=== PATIENT | male | born 1975 | race African-American/Black ===

== ENCOUNTER 2016-12-29 16:05 | Emergency (ER) | payer OTHER ==
[~2016-12-29] VITALS: Ht 177.8 cm; Wt 102.6 kg
[2016-12-29 16:11] VITALS: BP 146/96
[2016-12-29] MEDS ORDERED: IBUPROFEN 200 MG TABLET ONE (17:03)
[2016-12-29] MEDS ORDERED: IBUPROFEN 200 MG TABLET PO ONE (18:00)
== END 2016-12-29 17:43 | disposition home or self-care (01) ==
LOC: ED 17:37
DX: M75.52 Bursitis of left shoulder (principal); E11.9 Type 2 diabetes mellitus without complications; F17.200 Nicotine dependence, unspecified, uncomplicated
CPT/HCPCS: 99284

== ENCOUNTER → 2020-04-13 | Outpatient (CLI) | payer OTHER | END | disposition home or self-care (01) | LOC: CLISVCS 12:52 | PROVIDERS: ATTEND Anesthesiology | DX: Z20.828 Contact with and (suspected) exposure to other viral communicable diseases (principal) | CPT/HCPCS: 87635 ==

== ENCOUNTER → 2020-04-18 | Day surgery (SDC) | payer OTHER ==
[~2020-04-18] MED LIST: AMLO-211 PO; ASPI-515 PO; BUPIVACAINE/PF 0.5% ONE; EMPA1TAB17 PO; EPINEPHRINE 1 MG/ML, 1ML ONE; LISI-170 PO; SIMV20TA19 PO
== END | disposition home or self-care (01) ==
LOC: OUT 06:06
PROVIDERS: ATTEND Surgery
DX: Z02.9 Encounter for administrative examinations, unspecified (principal)
CPT/HCPCS: J0171

== ENCOUNTER 2020-04-22 09:34 | Day surgery (SDC) | payer OTHER ==
[~2020-04-22] VITALS: Ht 177.8 cm; Wt 75.0 kg
[2020-04-22] MEDS ORDERED: EPINEPHRINE 1 MG/ML, 1ML ONE (09:50)
[2020-04-22] MEDS ORDERED: BUPIVACAINE/PF 0.5% ONE (09:50)
[2020-04-22 09:55] VITALS: BP 151/95
[2020-04-22] MEDS ORDERED: LACTATED RINGERS 1,000 ML IV SCH (10:00)
[2020-04-22] MEDS ORDERED: CHLORHEXIDINE 15 ML UDC MM STA (10:00)
[2020-04-22] MEDS ORDERED: AMLO-211 PO (10:05)
[2020-04-22] MEDS ORDERED: ASPI-515 PO (10:05)
[2020-04-22] MEDS ORDERED: EMPA1TAB17 PO (10:05)
[2020-04-22] MEDS ORDERED: LISI-170 PO (10:05)
[2020-04-22] MEDS ORDERED: SIMV20TA19 PO (10:05)
[2020-04-22] MEDS ORDERED: FENTANYL PF 250 MCG/5ML ONE (10:08)
[2020-04-22] MEDS ORDERED: MIDAZOLAM 1 MG/ML, 2ML ONE (10:08)
[2020-04-22 10:25] LABS: ALBUMIN 4.1 g/dL (3.4-5.0); ANION GAP 8 mmol/L (5-15); CHLORIDE 109 mmol/L (98-107)
[2020-04-22 10:29] LABS: ALANINE AMINOTRANSFERASE 27 U/L (12-78); ALKALINE PHOSPHATASE 82 U/L (45-117); BILIRUBIN,TOTAL 0.4 mg/dL (0.2-1.0); CREATININE 0.86 mg/dL (0.7-1.3); TOTAL PROTEIN 7.8 g/dL (6.4-8.2)
[2020-04-22] MEDS ORDERED: MEPERIDINE/PF 25MG/0.5ML IVPush PRN (11:00)
[2020-04-22] MEDS ORDERED: ACETAMINOPHEN 325 MG TABLET PO PRN (11:00)
[2020-04-22] MEDS ORDERED: PROMETHAZINE 25 MG/ML, 1ML IV PRN (11:00)
[2020-04-22] MEDS ORDERED: hydrALAzine 20 MG/ML, 1ML IV PRN (11:00)
[2020-04-22] MEDS ORDERED: KETOROLAC 30 MG/1 ML IV PRN (11:00)
[2020-04-22] MEDS ORDERED: LABETALOL 5MG/ML, 20ML IV PRN (11:00)
[2020-04-22] MEDS ORDERED: FENTANYL PF 100 MCG/2ML IV PRN (11:00)
[2020-04-22] MEDS ORDERED: ALBUTEROL SULFATE 2.5 MG/3 ML NPPB PRN (11:00)
[2020-04-22] MEDS ORDERED: OXYcodone 5 MG/5 ML ORAL.SOL UDC PO PRN (11:00)
[2020-04-22] MEDS ORDERED: HYDROmorphone 2 MG/ML, 1ML IVPush PRN (11:00)
[2020-04-22] MEDS ORDERED: DIAZEPAM 5 MG/ML, 2ML IVPush PRN (11:00)
[2020-04-22] MEDS ORDERED: PROPOFOL 10 MG/ML, 20ML ONE (12:09)
[2020-04-22] MEDS ORDERED: SUCCINYLCHOLINE 20 MG/ML, 10ML ONE (12:09)
[2020-04-22] MEDS ORDERED: CEFAZOLIN 1,000 MG ONE (12:09)
[2020-04-22] MEDS ORDERED: ROCURONIUM 10MG/ML,5ML ONE (12:09)
[2020-04-22] MEDS ORDERED: NEOSTIGMINE 1 MG/ML, 10ML ONE (12:09)
[2020-04-22] MEDS ORDERED: DEXAMETHASONE 4 MG/ML, 1ML ONE (12:09)
[2020-04-22] MEDS ORDERED: ONDANSETRON 2MG/ML, 2ML ONE (12:09)
[2020-04-22] MEDS ORDERED: GLYCOPYRROLATE 0.2MG/1ML, 5ML ONE (12:09)
== END 2020-04-22 12:50 | disposition home or self-care (01) ==
LOC: OUT 09:34
PROVIDERS: ATTEND Surgery
DX: K61.39 Other ischiorectal abscess (principal); E11.9 Type 2 diabetes mellitus without complications; I10 Essential (primary) hypertension; E78.5 Hyperlipidemia, unspecified; F17.210 Nicotine dependence, cigarettes, uncomplicated; Z20.828 Contact with and (suspected) exposure to other viral communicable diseases; Z79.82 Long term (current) use of aspirin; Z79.899 Other long term (current) drug therapy; Z83.3 Family history of diabetes mellitus; Z82.49 Family history of ischemic heart disease and other diseases of the circulatory system
CPT/HCPCS: 46040; 80053; 82962; 87635; J0171; J0330; J0690; J1100; J2250; J2405; J2704; J2710; J3010; J7120